=== PATIENT | male | born 1940 | race Caucasian/White ===

== ENCOUNTER 2019-11-26 09:05 | Outpatient (CLI) | payer OTHER ==
[~2019-11-26 09:05] MED LIST: AMLODIPINE-BENA1 CAP; DIGOXIN0.125 MG/2; GLIMEPIRIDE4 MG; METFORMIN HCL500 MG; PANTOPRAZOLE SO40 MG; PRADAXA150 MG; TOPROL XL25 M1; WAL-ZYR10 MG
== END 2019-11-26 09:10 | disposition home or self-care (01) ==
LOC: RX STUDY 09:05
DX: R63.4 Abnormal weight loss (principal); K21.9 Gastro-esophageal reflux disease without esophagitis; R13.19 Other dysphagia; D50.8 Other iron deficiency anemias

== ENCOUNTER 2021-10-16 11:26 | Outpatient (CLI) | payer OTHER | END 2021-10-16 11:35 | disposition home or self-care (01) | LOC: RAD 11:26 | PROVIDERS: ATTEND Specialist | DX: I11.0 Hypertensive heart disease with heart failure (principal); J91.8 Pleural effusion in other conditions classified elsewhere ==